=== PATIENT | female | born 1990 | race African-American/Black ===

== ENCOUNTER → 2020-09-19 | Emergency (ER) | payer SELFPAY ==
[~2020-09-19] VITALS: Ht 160 cm; Wt 60.3 kg
[~2020-09-19] MED LIST: CEPH500T PO; IV NS 0.9% 1,000 ML BAG IV ONE
--- NOTE | 2020-09-19 12:18 | NUR ---
THE PATIENT BIB FOR C/O RT FLANK PAIN X 1WK & WITH WHITE MUCUS ON STOOL THIS AM PER PATIENT. THE PATIENT REATES RIGHT FLANK PAIN 4/10. THE PATIENT IS ALERT AND ORIENTED X4. DENIES SOB. IN ROOM AIR AND DENIES SOB. RESPIRATION REGULAR AND UNLABORED. THE PATIENT IS PROVIDED WITH WARM BLANKET. WILL CONTINUE TO MONITOR.
[2020-09-19 12:35] LABS: BASOPHILS % (AUTO) 0.5 % (0.0-2.0); EOSINOPHILS % (AUTO) 0.6 % (0.0-6.0); HEMATOCRIT 33 % (33-45); HEMOGLOBIN 10.9 g/dL (11.5-14.8); LYMPHOCYTES # (AUTO) 1.1 /CMM (0.8-4.8); LYMPHOCYTES % (AUTO) 15.8 % (20.0-44.0); MEAN CORPUSCULAR HGB CONC 33 g/dl (31.0-36.0); MEAN CORPUSCULAR VOLUME 86 fL (82-100); MONOCYTES # (AUTO) 0.6 /CMM (0.1-1.30); MONOCYTES % (AUTO) 9.3 % (2.0-12.0); NEUTROPHILS # (AUTO) 5.1 /CMM (1.8-8.9); NEUTROPHILS % (AUTO) 73.8 % (43.0-81.0); PLATELET COUNT (AUTO) 285 /CMM (150-450); RED BLOOD CELL COUNT(AUTO) 3.84 MIL/uL (4.0-5.2); WHITE BLOOD COUNT (AUTO) 6.9 K/uL (4.3-11.0)
[2020-09-19 12:47] LABS: BILIRUBIN,URINE Negative (NEGATIVE); COLOR,URINE LIGHT YELLOW (YELLOW); LEUKOCYTE ESTERASE ,URINE Small (NEGATIVE); NITRITE, URINE Negative (NEGATIVE); PH,URINE 5.5 (5.0-8.0); PROTEIN,URINE Negative (NEGATIVE); UGLUCOSE Negative (NEGATIVE); UROBILINOGEN,URINE 0.2 EU/dL (0.2)
[2020-09-19 12:54] LABS: RBC,URINE 21-50 /HPF (0-2)
[2020-09-19 12:55] LABS: BACTERIA,URINE 1+ /HPF (None Seen)
[2020-09-19 12:56] LABS: ALBUMIN 3.6 g/dL (3.4-5.0); BILIRUBIN,DIRECT 0.1 mg/dL (0.0-0.2); BILIRUBIN,TOTAL 0.3 mg/dL (0.2-1.0); CALCIUM, SERUM 8.8 mg/dL (8.5-10.1); CREATININE 0.9 mg/dL (0.6-1.3); POTASSIUM 4.1 mmol/L (3.5-5.1)
[2020-09-19 15:13] VITALS: BP 102/70
--- NOTE | 2020-09-19 15:15 | NUR ---
The patient is alert and oriented x4. Patient discharged to home in stable condition. Written and verbal after care instructions given. Patient verbalizes understanding of instruction. The patient left ER in stable condition.
== END | disposition home or self-care (01) ==
LOC: ER 11:54
DX: N30.00 Acute cystitis without hematuria (principal); R31.9 Hematuria, unspecified
CPT/HCPCS: 36415; 76770-TC; 80048-TC; 80076-TC; 81001; 83690-TC; 84703-TC; 85025-TC; 87086-TC; 87186-TC